=== PATIENT | female | born 1965 | race American Indian/Alaskan Native ===

== ENCOUNTER 2016-06-30 16:42 | Emergency (ER) | payer MEDICARE ==
[2016-06-30] MEDS ORDERED: TORADOL IM ONE (19:44)
--- NOTE | 2016-06-30 19:56 | Emergency Department Report ---
HPI - General Chief Complaint: Extremity Injury, Upper Time Seen by Provider: 06/30/16 19:27 - HPI HPI: 50-year-old female presents to the ED complaining of right middle fingertip pain and swelling for the past 2 weeks. Patient states fingertip has gotten progressively bigger and very painful.. Patient's she tends to bite her fingernails often. Patient states fingertip is discolored with some white areas. Patient denies fevers/chills/nausea/vomiting/abdominal pain/chest pain shortness of breath and dizziness, loss of finger function, loss of sensation. ED Past Medical Hx - Past Medical History Hx Hypertension: Yes Hx CVA: Yes Hx Diabetes: Yes Hx Arthritis: Yes - Surgical History Additional Surgical History: LEFT ANKLE. HERNIA REPAIR (UMBILICAL) - Social History Smoking Status: Former Smoker Substance Use Type: None - Medications Home Medications: Home Medications Medication Instructions Recorded Confirmed Last Taken Type Ibuprofen [Motrin] 800 mg PO Q8H PRN #21 tablet 08/16/14 12/09/15 Unknown Rx Black Cohosh 540 mg PO DAILY 12/09/15 12/09/15 Unknown History Cyclobenzaprine HCl [Flexeril 5 MG 5 mg PO TID #30 tab 12/09/15 Unknown Rx TAB] Ergocalciferol (Vitamin D2) 400 unit PO DAILY 12/09/15 12/09/15 Unknown History [Vitamin D] Lisinopril [Zestril] 20 mg PO QDAY 12/09/15 12/09/15 Unknown History Meloxicam [Mobic] 15 mg PO DAILY #30 tablet 12/09/15 Unknown Rx Metformin HCl [Glucophage] 1,000 mg PO BID 12/09/15 12/09/15 Unknown History [place]-3 Fatty Acids/Fish Oil [Fish 1,000 mg PO DAILY 12/09/15 12/09/15 Unknown History Oil] Terbinafine (Nf) [LamiSIL] 250 mg PO QDAY 12/09/15 12/09/15 Unknown History amLODIPine [Norvasc] 10 mg PO DAILY 12/09/15 12/09/15 Unknown History Acetaminophen/Codeine [Tylenol #3] 1 tab PO Q6H PRN #14 tab 06/30/16 Unknown Rx Amoxicillin/K Clav Tab [Augmentin 1 tab PO Q12HR #14 tab 06/30/16 Unknown Rx 875 mg] ED Review of Systems ROS: Stated complaint: R HAND MIDDLE FINGER INFECTED Other details as noted in HPI Constitutional: denies: chills, fever Eyes: denies: eye pain, eye discharge, vision change ENT: denies: ear pain, throat pain, dental pain, hearing loss, congestion Respiratory: denies: cough, shortness of breath, SOB with exertion, wheezing Cardiovascular: denies: chest pain, palpitations Endocrine: no symptoms reported. denies: excessive sweating, flushing, intolerance to cold Gastrointestinal: denies: abdominal pain, nausea, vomiting, diarrhea, constipation Genitourinary: denies: urgency, dysuria, discharge Musculoskeletal: denies: back pain, joint swelling, arthralgia Skin: denies: rash, lesions, pruritus Neurological: denies: headache, weakness, numbness, paresthesias, confusion Psychiatric: denies: anxiety, depression Hematological/Lymphatic: denies: easy bleeding, easy bruising Physical Exam - Physical Exam Vital Signs: Vital Signs 06/30/16 17:07 Temperature 98.0 F Pulse Rate 73 Respiratory 18 Rate Blood Pressure 155/97 O2 Sat by Pulse 100 Oximetry Physical Exam: GENERAL: Alert and oriented x3, no apparent distress, Normal Gait, atraumatic. HEAD: Head is normocephalic and a-traumatic. EYES: Extra ocular muscles are intact. Pupils are equal, round, and reactive to light and accommodation. EARS: symetrical, atraumatic, gross auditory nml bilaterally. NOSE: Nose symetrical, Nontender,Nares appeared normal. MOUTH:Mouth is well hydrated and without lesions. Patent airways. NECK: Supple. Non edematous, No carotid bruits. No lymphadenopathy or thyromegaly. LUNGS: Symetrical with respiration, No wheezing, no rales or crackles, CTAB. HEART: S1, S2 present, regular rate and rhythm without murmur, no rubs, no gallops. ABDOMEN: No organomegaly was noted,Positive bowel sounds, soft, and non- distended. . Nontender to palpation on all Quadrants, NO CVA tenderness. EXTREMITIES/MUSCULOSKELETAL: No cyanosis, clubbing, rash, lesions or edema. Full ROM bilaterally. UE/LE Pulses 2+ bilaterally. Right middle fingertip blanched, and a mattress, nonerythematous, no dislocation or fractures observed. No loss of finger function finger has full range of motion with some pain flex and the tip of the middle finger. NEUROLOGIC: No focal Deficit, Cranial nerves II through XII are grossly intact. No loss of sensation, PSYCHIATRIC: Mood is congruent with affect, denies suicidal or homicidal ideations. SKIN: Warm and dry, No lesions, No ulceration or induration present. ED Course Vital Signs 06/30/16 17:07 Temperature 98.0 F Pulse Rate 73 Respiratory 18 Rate Blood Pressure 155/97 O2 Sat by Pulse 100 Oximetry - I & D Right Distal Finger Type of Procedure: Simple Site: middle finger tip Blade Size: 11 I & D Procedure: betadine prep, sterile drapes applied, sterile dressing applied Progress: Patient positioned appropriately, 2cc lidocaine without epinephrine was used as a local anesthetic. #11 blade scalpal used for single incision. Copius drainage of pus. Procedure tolerated without complications. Wound dressed with sterile 4x4 guaze and paper tape. Pt tolerated procedure well. ED Medical Decision Making - Medical Decision Making 50-year-old female presents with paronychia of the middle finger nail. ED course: Patient received 60 mg IM of Toradol. Paronychia abscess drained. See note above. Discussed the patient follow-up with her primary care physician. Discussed continuing heat compression on fingertip. Vital signs are stable. Patient is in no acute or respiratory distress. Discussed to take pain medication and antibiotics as prescribed Critical care attestation.: If time is entered above; I have spent that time in minutes in the direct care of this critically ill patient, excluding procedure time. ED Disposition Clinical Impression: Paronychia of right middle finger Disposition: DISCHARGED TO HOME OR SELFCARE Is pt being admited?: No Does the pt Need Aspirin: No Condition: Stable Instructions: Paronychia (ED), Heat Pack Application (ED) Prescriptions: Acetaminophen/Codeine [Tylenol #3] 1 tab PO Q6H PRN #14 tab PRN Reason: Pain Amoxicillin/K Clav Tab [Augmentin 875 mg] 1 tab PO Q12HR #14 tab Referrals: PRIMARY CARE, [Primary Care Provider] - 3-5 Days [facility] [Outside] - 3-[address] [facility] [Outside] - 3-5 Days [facility] [Outside] - 3-5 Days Forms: Work/School Release Form(ED) Time of Disposition: 20:06
[2016-06-30] MEDS ORDERED: XYLOCAINE 1% MPF 5 mL INFILTRATI ONE (20:08)
[2016-06-30 20:51] VITALS: BP 148/92
== END 2016-06-30 20:50 | disposition home or self-care (01) ==
LOC: ED 16:42
DX: L03.011 Cellulitis of right finger (principal); I10 Essential (primary) hypertension; I63.9 Cerebral infarction, unspecified; E11.9 Type 2 diabetes mellitus without complications; M19.90 Unspecified osteoarthritis, unspecified site; Z87.891 Personal history of nicotine dependence
CPT/HCPCS: 10060; 96372; 99282; J1885

== ENCOUNTER 2016-12-18 16:55 | Emergency (ER) | payer MEDICARE ==
[2016-12-18] MEDS ORDERED: TORADOL IM ONE (20:21)
[2016-12-18 20:46] VITALS: BP 168/97
--- NOTE | 2016-12-20 16:15 | Emergency Department Report ---
Entered by ETHAN SEPULVEDA, acting as scribe for SHARRI ALFARO PA. ED Extremity Problem HPI - General Chief complaint: Extremity Injury, Lower Stated complaint: HIP PAIN/LEFT SIDE Time Seen by Provider: 12/18/16 20:03 Source: patient Mode of arrival: Ambulatory Limitations: No Limitations - History of Present Illness Initial comments: 51 y/o female with a PMHx of arthritis, CVA, diabetes mellitus, and HTN presents to the ED c/o an acute onset of left hip pain that began 1 days ago. Rates pain an 8/10 in severity, which she describes as aching in quality. Aggravated with movement and pressure, and alleviated with immobilization. Denies left hip injury/trauma, numbness, tingling, fever, chills, nausea, and vomiting. Notes she sleeps on her left side occasionally. NKDA. GARCIA Complaint: extremity pain Onset/Timin -: days(s) Location: left, other (hip) History of Same: No -: No myalgia, Yes arthralgia (left hip), No fever, No associated dyspnea, No associated chest pain Radiation: none Severity scale (0 -10): 8 Quality: aching Consistency: constant Improves with: immobilization Worsens with: palpation, other (movement) Associated Symptoms: denies other symptoms, myalgias (LT hip pain). denies: chest pain, shortness of breath, fever, arthralgias, rash, other - Related Data Home Medications Medication Instructions Recorded Confirmed Last Taken Black Cohosh 540 mg PO DAILY 12/09/15 12/09/15 Unknown Ergocalciferol(Vitamin D2)(Nf) 400 unit PO DAILY 12/09/15 12/09/15 Unknown [Vitamin D] Lisinopril [Zestril] 20 mg PO QDAY 12/09/15 12/09/15 Unknown Metformin HCl [Glucophage] 1,000 mg PO BID 12/09/15 12/09/15 Unknown [place]-3 Fatty Acids/Fish Oil [Fish 1,000 mg PO DAILY 12/09/15 12/09/15 Unknown Oil] Terbinafine (Nf) [LamiSIL] 250 mg PO QDAY 12/09/15 12/09/15 Unknown amLODIPine [Norvasc] 10 mg PO DAILY 12/09/15 12/09/15 Unknown Previous Rx's Medication Instructions Recorded Last Taken Type Ibuprofen [Motrin] 800 mg PO Q8H PRN #21 tablet 08/16/14 Unknown Rx Meloxicam [Mobic] 15 mg PO DAILY #30 tablet 12/09/15 Unknown Rx Acetaminophen/Codeine [Tylenol #3] 1 tab PO Q6H PRN #14 tab 06/30/16 Unknown Rx Amoxicillin/K Clav Tab [Augmentin 1 tab PO Q12HR #14 tab 06/30/16 Unknown Rx 875 mg] Cyclobenzaprine HCl [Flexeril 5 MG 5 mg PO TID #30 tab 12/18/16 Unknown Rx TAB] Diclofenac Potassium 50 mg PO BID #30 tablet 12/18/16 Unknown Rx Allergies Allergy/AdvReac Type Severity Reaction Status Date / Time No Known Allergies Allergy Verified 06/30/16 17:07 ED Review of Systems Comment: All other systems reviewed and negative Constitutional: denies: chills, diaphoresis, fever, malaise, weakness Eyes: denies: eye pain, eye discharge, vision change ENT: denies: ear pain, throat pain Respiratory: denies: cough, orthopnea, shortness of breath, SOB with exertion, SOB at rest, stridor, wheezing Cardiovascular: denies: chest pain, palpitations, dyspnea on exertion, orthopnea , edema, syncope, paroxysmal nocturnal dyspnea Endocrine: no symptoms reported Gastrointestinal: denies: abdominal pain, nausea, vomiting, diarrhea Musculoskeletal: arthralgia (LT hip pain). denies: back pain, joint swelling, myalgia Skin: denies: rash, lesions Neurological: denies: headache, weakness, numbness, paresthesias ED Past Medical Hx - Past Medical History Previous Medical History?: Yes Hx Hypertension: Yes Hx CVA: Yes (left sided weakness) Hx Diabetes: Yes Hx Arthritis: Yes - Surgical History Past Surgical History?: No Additional Surgical History: LEFT ANKLE. HERNIA REPAIR (UMBILICAL) - Social History Smoking Status: Former Smoker Substance Use Type: Alcohol, Marijuana - Medications Home Medications: Home Medications Medication Instructions Recorded Confirmed Last Taken Type Ibuprofen [Motrin] 800 mg PO Q8H PRN #21 tablet 08/16/14 12/09/15 Unknown Rx Black Cohosh 540 mg PO DAILY 12/09/15 12/09/15 Unknown History Ergocalciferol(Vitamin D2)(Nf) 400 unit PO DAILY 12/09/15 12/09/15 Unknown History [Vitamin D] Lisinopril [Zestril] 20 mg PO QDAY 12/09/15 12/09/15 Unknown History Meloxicam [Mobic] 15 mg PO DAILY #30 tablet 12/09/15 Unknown Rx Metformin HCl [Glucophage] 1,000 mg PO BID 12/09/15 12/09/15 Unknown History [place]-3 Fatty Acids/Fish Oil [Fish 1,000 mg PO DAILY 12/09/15 12/09/15 Unknown History Oil] Terbinafine (Nf) [LamiSIL] 250 mg PO QDAY 12/09/15 12/09/15 Unknown History amLODIPine [Norvasc] 10 mg PO DAILY 12/09/15 12/09/15 Unknown History Acetaminophen/Codeine [Tylenol #3] 1 tab PO Q6H PRN #14 tab 06/30/16 Unknown Rx Amoxicillin/K Clav Tab [Augmentin 1 tab PO Q12HR #14 tab 06/30/16 Unknown Rx 875 mg] Cyclobenzaprine HCl [Flexeril 5 MG 5 mg PO TID #30 tab 12/18/16 Unknown Rx TAB] Diclofenac Potassium 50 mg PO BID #30 tablet 12/18/16 Unknown Rx ED Physical Exam - General Limitations: No Limitations General appearance: alert, in no apparent distress - Head Head exam: Present: atraumatic, normocephalic - Eye Eye exam: Present: normal appearance, PERRL, EOMI Pupils: Present: normal accommodation - ENT ENT exam: Present: normal exam, mucous membranes moist, normal external ear exam - Neck Neck exam: Present: normal inspection, full ROM. Absent: tenderness, meningismus, lymphadenopathy - Respiratory Respiratory exam: Present: normal lung sounds bilaterally. Absent: respiratory distress, wheezes, rales, rhonchi, stridor, accessory muscle use, decreased breath sounds - Cardiovascular Cardiovascular Exam: Present: regular rate, normal rhythm, normal heart sounds. Absent: systolic murmur, diastolic murmur, rubs, gallop - GI/Abdominal GI/Abdominal exam: Present: soft, normal bowel sounds. Absent: distended - Extremities Exam Extremities exam: Present: full ROM, tenderness (LT hip with deep palpation), normal capillary refill. Absent: normal inspection, pedal edema, joint swelling , calf tenderness - Expanded Lower Extremity Exam Left Hip exam: Present: full ROM, tenderness (with deep palpation), external rotation , internal rotation, pelvic stability. Absent: normal inspection, swelling, abrasion, laceration, ecchymosis, deformity, crepidus, dislocation, erythema, shortening Upper Leg exam: Present: normal inspection, full ROM. Absent: tenderness, swelling, abrasion, laceration, ecchymosis, deformity, crepidus, dislocation, erythema Knee exam: Present: normal inspection, full ROM, full knee extension. Absent: tenderness, swelling, abrasion, laceration, ecchymosis, deformity, crepidus, dislocation, erythema, effusion, pain w/ pronation/supination, posterior draw sign, pain/laxity with valgus, pain/laxity with varus Lower Leg exam: Present: normal inspection, full ROM. Absent: tenderness, swelling, abrasion, laceration, ecchymosis, deformity, crepidus, dislocation, erythema, palpable cord, Mayo's sign Ankle exam: Present: normal inspection, full ROM Foot/Toe exam: Present: normal inspection, full ROM Neuro vascular tendon exam: Present: no vascular compromise. Absent: pulse deficit, abnormal cap refill, motor deficit, sensory deficit, tendon deficit, extremity cold to touch, pallor, abnormal 2-point discrimination, decreased fine /light touch, foot drop, peroneal nerve deficit, significant pain with passive ROM of distal joint Gait: Positive: observed and limited by pain - Back Exam Back exam: Present: normal inspection, full ROM. Absent: tenderness - Neurological Exam Neurological exam: Present: alert, oriented X3, normal gait (limited by left hip pain) - Psychiatric Psychiatric exam: Present: normal affect, normal mood - Skin Skin exam: Present: warm, dry, intact. Absent: rash ED Course Vital Signs 12/18/16 12/18/16 12/18/16 17:06 20:35 20:46 Temperature 98.8 F 98 F Pulse Rate 86 79 Respiratory 18 16 16 Rate Blood Pressure 152/91 Blood Pressure 168/97 [Right] O2 Sat by Pulse 100 100 Oximetry ED Medical Decision Making - Medical Decision Making 51 year old female presents with an acute episode of arthralgia in left hip ED course: Patient was given a shot of Toradol Vital signs stable patient is in no acute or respiratory distress. Discussed findings with patient about diagnoses. Discussed treatment in ED with patient. Discussed with patient about prescribes medications, Flexeril 5 mg and Diclofenac Potassium 50 mg, for pain Discussed with patient to follow up with PCP as referred, and to return to the ED if symptoms return or worsen. Patient states understanding and will follow instructions. Pt verbally states understanding and will comply to follow up. ED Disposition Clinical Impression: Myalgia, Arthralgia of hip, left Disposition: - TO HOME OR SELFCARE Is pt being admited?: No Does the pt Need Aspirin: No Condition: Stable Instructions: Trigger Point Pain (ED), Musculoskeletal Pain (ED), Arthralgia ( ED) Additional Instructions: If worsening symptoms please return to ED Taking medication as prescribed Prescriptions: Cyclobenzaprine HCl [Flexeril 5 MG TAB] 5 mg PO TID #30 tab Diclofenac Potassium 50 mg PO BID #30 tablet Referrals: PRIMARY CARE,MD [Primary Care Provider] - 3-5 Days [facility] [Outside] - 3-5 Days [facility] [Outside] - 3-5 Days [facility] [Outside] - 3-5 Days Forms: Work/School Release Form(ED) Time of Disposition: 20:30 This documentation as recorded by the DERICK vieyra JASMINE,accurately reflects the service I personally performed and the decisions made by ,SHARRI ALFARO PA.
== END 2016-12-18 20:35 | disposition home or self-care (01) ==
LOC: ED 16:55
DX: M25.552 Pain in left hip (principal); M79.1 Myalgia; E11.9 Type 2 diabetes mellitus without complications; I10 Essential (primary) hypertension; M19.90 Unspecified osteoarthritis, unspecified site; F12.90 Cannabis use, unspecified, uncomplicated; Z86.73 Personal history of transient ischemic attack (TIA), and cerebral infarction without residual deficits; Z87.891 Personal history of nicotine dependence
CPT/HCPCS: 96372; 99282; J1885

== ENCOUNTER 2017-03-23 09:25 | Emergency (ER) | payer MEDICARE ==
[2017-03-23 09:34] VITALS: BP 177/97
--- NOTE | 2017-03-23 11:38 | Emergency Department Report ---
ED ENT HPI - General Chief complaint: Dental/Oral Stated complaint: ABSCESS ON GUM Time Seen by Provider: 03/23/17 10:49 Source: patient Mode of arrival: Ambulatory Limitations: No Limitations - History of Present Illness MD complaint: tooth pain - Related Data Home Medications Medication Instructions Recorded Confirmed Last Taken Black Cohosh 540 mg PO DAILY 12/09/15 12/09/15 Unknown Ergocalciferol(Vitamin D2)(Nf) 400 unit PO DAILY 12/09/15 12/09/15 Unknown [Vitamin D] Lisinopril [Zestril] 20 mg PO QDAY 12/09/15 12/09/15 Unknown Metformin HCl [Glucophage] 1,000 mg PO BID 12/09/15 12/09/15 Unknown [place]-3 Fatty Acids/Fish Oil [Fish 1,000 mg PO DAILY 12/09/15 12/09/15 Unknown Oil] Terbinafine (Nf) [LamiSIL] 250 mg PO QDAY 12/09/15 12/09/15 Unknown amLODIPine [Norvasc] 10 mg PO DAILY 12/09/15 12/09/15 Unknown Previous Rx's Medication Instructions Recorded Last Taken Type Ibuprofen [Motrin] 800 mg PO Q8H PRN #21 tablet 08/16/14 Unknown Rx Meloxicam [Mobic] 15 mg PO DAILY #30 tablet 12/09/15 Unknown Rx Acetaminophen/Codeine [Tylenol #3] 1 tab PO Q6H PRN #14 tab 06/30/16 Unknown Rx Amoxicillin/K Clav Tab [Augmentin 1 tab PO Q12HR #14 tab 06/30/16 Unknown Rx 875 mg] Cyclobenzaprine HCl [Flexeril 5 MG 5 mg PO TID #30 tab 12/18/16 Unknown Rx TAB] Diclofenac Potassium 50 mg PO BID #30 tablet 12/18/16 Unknown Rx Acetaminophen/Codeine [Tylenol 1 tab PO Q6H PRN #9 tab 03/23/17 Unknown Rx /Codeine # 3 tab] Amoxicillin [Trimox CAP] 500 mg PO Q8H #30 capsule 03/23/17 Unknown Rx Benzocaine [Orajel Liquid 20%] 1 ml MM Q6HR PRN #1 bottle 03/23/17 Unknown Rx Chlorhexidine Mouthwash [Peridex] 15 ml MM BID #1 bottle 03/23/17 Unknown Rx Ibuprofen [Motrin] 800 mg PO Q8HR PRN #30 tablet 03/23/17 Unknown Rx Allergies Allergy/AdvReac Type Severity Reaction Status Date / Time No Known Allergies Allergy Verified 06/30/16 17:07 ED Dental HPI - General Chief complaint: Dental/Oral Stated complaint: ABSCESS ON GUM Time Seen by Provider: 03/23/17 10:49 Source: patient Mode of arrival: Ambulatory Limitations: No Limitations - Related Data Home Medications Medication Instructions Recorded Confirmed Last Taken Black Cohosh 540 mg PO DAILY 12/09/15 12/09/15 Unknown Ergocalciferol(Vitamin D2)(Nf) 400 unit PO DAILY 12/09/15 12/09/15 Unknown [Vitamin D] Lisinopril [Zestril] 20 mg PO QDAY 12/09/15 12/09/15 Unknown Metformin HCl [Glucophage] 1,000 mg PO BID 12/09/15 12/09/15 Unknown [place]-3 Fatty Acids/Fish Oil [Fish 1,000 mg PO DAILY 12/09/15 12/09/15 Unknown Oil] Terbinafine (Nf) [LamiSIL] 250 mg PO QDAY 12/09/15 12/09/15 Unknown amLODIPine [Norvasc] 10 mg PO DAILY 12/09/15 12/09/15 Unknown Previous Rx's Medication Instructions Recorded Last Taken Type Ibuprofen [Motrin] 800 mg PO Q8H PRN #21 tablet 08/16/14 Unknown Rx Meloxicam [Mobic] 15 mg PO DAILY #30 tablet 12/09/15 Unknown Rx Acetaminophen/Codeine [Tylenol #3] 1 tab PO Q6H PRN #14 tab 06/30/16 Unknown Rx Amoxicillin/K Clav Tab [Augmentin 1 tab PO Q12HR #14 tab 06/30/16 Unknown Rx 875 mg] Cyclobenzaprine HCl [Flexeril 5 MG 5 mg PO TID #30 tab 12/18/16 Unknown Rx TAB] Diclofenac Potassium 50 mg PO BID #30 tablet 12/18/16 Unknown Rx Acetaminophen/Codeine [Tylenol 1 tab PO Q6H PRN #9 tab 03/23/17 Unknown Rx /Codeine # 3 tab] Amoxicillin [Trimox CAP] 500 mg PO Q8H #30 capsule 03/23/17 Unknown Rx Benzocaine [Orajel Liquid 20%] 1 ml MM Q6HR PRN #1 bottle 03/23/17 Unknown Rx Chlorhexidine Mouthwash [Peridex] 15 ml MM BID #1 bottle 03/23/17 Unknown Rx Ibuprofen [Motrin] 800 mg PO Q8HR PRN #30 tablet 03/23/17 Unknown Rx Allergies Allergy/AdvReac Type Severity Reaction Status Date / Time No Known Allergies Allergy Verified 06/30/16 17:07 ED Review of Systems ROS: Stated complaint: ABSCESS ON GUM Other details as noted in HPI ED Past Medical Hx - Past Medical History Previous Medical History?: Yes Hx Hypertension: Yes Hx CVA: Yes (left sided weakness) Hx Diabetes: Yes Hx Arthritis: Yes - Surgical History Past Surgical History?: Yes Additional Surgical History: LEFT ANKLE. HERNIA REPAIR (UMBILICAL) - Social History Smoking Status: Never Smoker Substance Use Type: Alcohol - Medications Home Medications: Home Medications Medication Instructions Recorded Confirmed Last Taken Type Ibuprofen [Motrin] 800 mg PO Q8H PRN #21 tablet 08/16/14 12/09/15 Unknown Rx Black Cohosh 540 mg PO DAILY 12/09/15 12/09/15 Unknown History Ergocalciferol(Vitamin D2)(Nf) 400 unit PO DAILY 12/09/15 12/09/15 Unknown History [Vitamin D] Lisinopril [Zestril] 20 mg PO QDAY 12/09/15 12/09/15 Unknown History Meloxicam [Mobic] 15 mg PO DAILY #30 tablet 12/09/15 Unknown Rx Metformin HCl [Glucophage] 1,000 mg PO BID 12/09/15 12/09/15 Unknown History [place]-3 Fatty Acids/Fish Oil [Fish 1,000 mg PO DAILY 12/09/15 12/09/15 Unknown History Oil] Terbinafine (Nf) [LamiSIL] 250 mg PO QDAY 12/09/15 12/09/15 Unknown History amLODIPine [Norvasc] 10 mg PO DAILY 12/09/15 12/09/15 Unknown History Acetaminophen/Codeine [Tylenol #3] 1 tab PO Q6H PRN #14 tab 06/30/16 Unknown Rx Amoxicillin/K Clav Tab [Augmentin 1 tab PO Q12HR #14 tab 06/30/16 Unknown Rx 875 mg] Cyclobenzaprine HCl [Flexeril 5 MG 5 mg PO TID #30 tab 12/18/16 Unknown Rx TAB] Diclofenac Potassium 50 mg PO BID #30 tablet 12/18/16 Unknown Rx Acetaminophen/Codeine [Tylenol 1 tab PO Q6H PRN #9 tab 03/23/17 Unknown Rx /Codeine # 3 tab] Amoxicillin [Trimox CAP] 500 mg PO Q8H #30 capsule 03/23/17 Unknown Rx Benzocaine [Orajel Liquid 20%] 1 ml MM Q6HR PRN #1 bottle 03/23/17 Unknown Rx Chlorhexidine Mouthwash [Peridex] 15 ml MM BID #1 bottle 03/23/17 Unknown Rx Ibuprofen [Motrin] 800 mg PO Q8HR PRN #30 tablet 03/23/17 Unknown Rx ED Physical Exam - General Limitations: No Limitations ED Course Vital Signs 03/23/17 09:32 Temperature 98.9 F Pulse Rate 82 Respiratory 16 Rate Blood Pressure 177/97 O2 Sat by Pulse 98 Oximetry ED Medical Decision Making - Medical Decision Making A/P: dental cavities, toothache, dental abscess 1- Motrin when necessary, amoxicillin ten-day course, Orajel when necessary, Peridex mouthwash daily basis, short course codeine when necessary 2- I provided patient with information for multiple dental clinics to follow up and stressed the importance of dental follow-up as he has multiple cavities that require dental fixation or instrumentation 3- no clinical signs of facial abscess, no Zacarias's angina, no induration or cellulitis of floor of mouth or tongue 4- patient able to tolerate by mouth before discharge 5- no signs of facial infection. Advised patient that if she does not take antibiotics with follow-up with a dentist as soon as possible that a can result in potentially serious or dangerous infection to develop in jaw or face. Patient states that he understood these instructions. I advised patient to return to the ED for any persistent unrelenting nausea or vomiting fever or chills or headaches. Critical care attestation.: If time is entered above; I have spent that time in minutes in the direct care of this critically ill patient, excluding procedure time. ED Disposition Clinical Impression: Pain, dental, Dental abscess Disposition: TO HOME OR SELFCARE Is pt being admited?: No Does the pt Need Aspirin: No Condition: Stable Instructions: Dental Abscess (ED), Toothache (ED) Prescriptions: Acetaminophen/Codeine [Tylenol /Codeine # 3 tab] 1 tab PO Q6H PRN #9 tab PRN Reason: Pain Amoxicillin [Trimox CAP] 500 mg PO Q8H #30 capsule Benzocaine [Orajel Liquid 20%] 1 ml MM Q6HR PRN #1 bottle PRN Reason: Toothache Chlorhexidine Mouthwash [Peridex] 15 ml MM BID #1 bottle Ibuprofen [Motrin] 800 mg PO Q8HR PRN #30 tablet PRN Reason: Toothache Referrals: [facility] [Outside] - 3-5 Days Time of Disposition: 11:34
== END 2017-03-23 11:57 | disposition home or self-care (01) ==
LOC: ED 09:25
DX: K04.7 Periapical abscess without sinus (principal); I10 Essential (primary) hypertension; Z86.73 Personal history of transient ischemic attack (TIA), and cerebral infarction without residual deficits; E11.9 Type 2 diabetes mellitus without complications; M19.90 Unspecified osteoarthritis, unspecified site
CPT/HCPCS: 99282

== ENCOUNTER 2018-07-26 21:48 | Emergency (ER) | payer MEDICARE ==
--- NOTE | 2018-07-26 22:40 | Emergency Department Report ---
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 Due to findings the following was ordered: ED Disposition for MSE Condition: Stable
[2018-07-26 22:59] LABS: Hematocrit 41.5 % (30.3-42.9); Hemoglobin 14.8 gm/dl (10.1-14.3); Mean Corpuscular HGB Conc 36 % (30-34); Mean Corpuscular Volume 94 fl (79-97); Platelet Count 249 K/mm3 (140-440); Red Blood Count 4.41 M/mm3 (3.65-5.03); Red Cell Distribution Width 13.4 % (13.2-15.2)
[2018-07-26 23:14] LABS: Calcium 10.4 mg/dL (8.4-10.2)
[2018-07-27] MEDS ORDERED: NACL 0.9% 1000 ML 1,000 ML IV ONE ×2 (00:44→03:24)
[2018-07-27] MEDS ORDERED: TORADOL IV ONE ×2 (00:45→03:40)
[2018-07-27] MEDS ORDERED: ZOFRAN IV ONE ×2 (00:45→03:40)
[2018-07-27 03:10] LABS: HCG Qualitative,Urine Negative (Negative)
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
[2018-07-27 04:13] LABS: Bacteria,Urine 1+ /HPF (Negative); Bilirubin,Urine NEG (Negative); Blood,Urine NEG (Negative); Color,Urine Yellow (Yellow)
[2018-07-27 07:37] VITALS: BP 144/72
--- NOTE | 2018-07-27 20:51 | Cat Scan Report ---
PROCEDURE: CT ABDOMEN PELVIS WO CON TECHNIQUE: Computerized axial tomography of the abdomen and pelvis was performed without intravenous contrast. This study is performed without intravascular contrast material and its sensitivity for ab dominal and pelvic pathology, including neoplasms, inflammation, abscess, free fluid, thrombosis, art erial dissection and infarction, is reduced compared with a contrast enhanced study. CT DOSE LENGTH PRODUCT: mGycm HISTORY: abd pain COMPARISONS: None . FINDINGS: Liver, spleen, pancreas and adrenal glands are within normal limits. Bilateral kidneys demonstrate no rmal density without calculi or hydronephrosis. Urinary bladder is partially filled. Aorta is of norm al caliber. There is no free fluid or free air. Gallbladder is well-distended and is unremarkable. Sm all bowel loops are within normal limits. Multiple colonic diverticula are noted without evidence of diverticulitis. Appendix is normal. A fat-containing uncomplicated left inguinal hernia is noted korina uring 4.5 x 4.8 cm. Vertebral height is normal. Moderate degree marginal osteophyte formation is note d involving the thoracic spine. An irregular soft tissue density lesion measuring 4.5 x 1.6 x 3.5 cm is noted anterior to the linea alba at the level of umbilicus. IMPRESSION: Colonic diverticulosis without evidence of diverticulitis. A 4.5 x 4.8 cm fat-containing uncomplicated left inguinal hernia. An irregular soft tissue density lesion involving the anterior abdominal wall at the level of umbilic us most likely represents a scar. Ultrasound evaluation may be recommended if clinically deemed neces ayala. This document is electronically signed by Min Brock MD., July 27 2018 08:49:27 PM ET
== END 2018-07-27 06:00 | disposition home or self-care (01) ==
LOC: ED 21:48
DX: N30.00 Acute cystitis without hematuria (principal); I10 Essential (primary) hypertension; E11.9 Type 2 diabetes mellitus without complications; M19.90 Unspecified osteoarthritis, unspecified site; F12.10 Cannabis abuse, uncomplicated; Z86.73 Personal history of transient ischemic attack (TIA), and cerebral infarction without residual deficits; Z79.899 Other long term (current) drug therapy; Z88.6 Allergy status to analgesic agent
CPT/HCPCS: 36415; 74176; 80048; 81001; 81025; 85027; 96374; 96375; 96376; 99284; J1885; J2405; J7030

== ENCOUNTER 2021-02-01 18:45 | Emergency (ER) | payer MEDICARE ==
[2021-02-01] MEDS ORDERED: predniSONE 20 MG TAB PO ONE ×2 (20:37→23:40)
[2021-02-01] MEDS ORDERED: oxyCODONE /ACETAMINOPHEN 5-325MG TAB PO ONE ×2 (20:37→23:40)
[2021-02-01] MEDS ORDERED: ONDANSETRON 4 MG ODT TAB PO ONE ×2 (20:37→23:40)
[2021-02-01 21:13] LABS: Basophils # (Auto) 0.1 K/mm3 (0.0-0.1); Basophils % (Auto) 1.4 % (0.0-1.8); Eosinophils # (Auto) 0.1 K/mm3 (0.0-0.4); Eosinophils % (Auto) 1.5 % (0.0-4.3); Hematocrit 40.6 % (30.3-42.9); Hemoglobin 14.2 gm/dl (10.1-14.3); Lymphocytes # (Auto) 2.3 K/mm3 (1.2-5.4); Lymphocytes % (Auto) 29.9 % (13.4-35.0); Mean Corpuscular HGB Conc 35 % (30-34); Mean Corpuscular Volume 98 fl (79-97); Monocytes # (Auto) 0.6 K/mm3 (0.0-0.8); Monocytes % (Auto) 7.7 % (0.0-7.3); Platelet Count 338 K/mm3 (140-440); Red Blood Count 4.12 M/mm3 (3.65-5.03); Red Cell Distribution Width 13.7 % (13.2-15.2)
--- NOTE | 2021-02-01 21:24 | XRay Report ---
LEFT KNEE 3 VIEW(S) INDICATION / CLINICAL INFORMATION: knee pain COMPARISON: None available. FINDINGS: BONES / JOINT(S): No acute fracture or subluxation. There is mild joint space loss and osteophytosis involving the medial greater than patellofemoral greater than lateral compartments. There is a small joint effusion. SOFT TISSUES: No significant abnormality. ADDITIONAL FINDINGS: None. Signer Name: John Parnell DO Signed: 02/01/2021 9:20 PM Workstation Name: [id number]
[2021-02-01 21:37] LABS: Albumin 4.7 g/dL (3.9-5)
[2021-02-01 21:54] LABS: Alanine Aminotransferase 12 units/L (7-56); Blood Urea Nitrogen 21 mg/dL (7-17); Calcium 10.7 mg/dL (8.4-10.2); Hemolysis Index 35
[2021-02-01 22:00] LABS: BUN/Creatinine Ratio 30
[2021-02-01 22:06] VITALS: BP 157/80
--- NOTE | 2021-02-01 22:08 | Emergency Department Report ---
ED Extremity Problem HPI - General Chief complaint: Extremity Injury, Lower Stated complaint: LT KNEE OUT, CANT PUT WEIGHT ON IT Source: patient Mode of arrival: Ambulatory Limitations: Physical Limitation - History of Present Illness Initial comments: Patient is a 55-year-old -[place] female with a history of hypertension, CVA, fzl-lioindx-inxwxmmgq diabetes, GERD, and chronic osteoarthritis who presents to the ED with complaint of acute exacerbation of her chronic pain characterized by left knee pain for the last 1 week, worse in the last 2 days. Patient states that her pain is chronic and usually gets worse in the fall when the weather changes. Patient states that the pain is constant, but worse at rest or with any active range of motion. Patient states that the pain is especially worse when she tries to get up despite taking vhvj-ior-oyhllxr pain medications and applying knee brace. Patient denies fall, traumatic injury, nausea, vomiting, chest pain, shortness of breath, fever, chills, dizziness, syncope or change in vision. MD Complaint: extremity pain (left knee joint pain), extremity swelling (left knee joint pain), joint swelling (left knee), joint paint (left knee) -: hour(s) (2), year(s) (12) Location: left, lower extremity (left knee), knee History of Same: Yes (chronic osteoarthritis ) -: Yes arthralgia (left knee pain), No fever, No associated dyspnea Severity scale (0 -10): 10 Quality: aching, sharp, constant Consistency: constant Improves with: nothing Worsens with: weight bearing, walking, exertion, palpation Associated Symptoms: denies other symptoms, arthralgias. denies: chest pain, shortness of breath, fever, myalgias, rash - Related Data Home Medications Medication Instructions Recorded Confirmed Last Taken Black Cohosh 540 mg PO DAILY 12/09/15 12/09/15 Unknown Ergocalciferol(Vitamin D2)(Nf) 400 unit PO DAILY 12/09/15 12/09/15 Unknown [Vitamin D] Metformin HCl [Glucophage] 1,000 mg PO BID 12/09/15 12/09/15 Unknown [place]-3 Fatty Acids/Fish Oil [Fish 1,000 mg PO DAILY 12/09/15 12/09/15 Unknown Oil] Terbinafine (Nf) [LamiSIL] 250 mg PO QDAY 12/09/15 12/09/15 Unknown amLODIPine [Norvasc] 10 mg PO DAILY 12/09/15 12/09/15 Unknown lisinopriL [Zestril] 20 mg PO QDAY 12/09/15 12/09/15 Unknown Previous Rx's Medication Instructions Recorded Last Taken Type Ibuprofen [Motrin] 800 mg PO Q8H PRN #21 tablet 08/16/14 Unknown Rx Meloxicam [Mobic] 15 mg PO DAILY #30 tablet 12/09/15 Unknown Rx Acetaminophen/Codeine [Tylenol #3] 1 tab PO Q6H PRN #14 tab 06/30/16 Unknown Rx Amoxicillin/K Clav Tab [Augmentin 1 tab PO Q12HR #14 tab 06/30/16 Unknown Rx 875 mg] Cyclobenzaprine HCl [Flexeril 5 MG 5 mg PO TID #30 tab 12/18/16 Unknown Rx TAB] Diclofenac Potassium 50 mg PO BID #30 tablet 12/18/16 Unknown Rx Acetaminophen/Codeine [Tylenol 1 tab PO Q6H PRN #9 tab 03/23/17 Unknown Rx /Codeine # 3 tab] Amoxicillin [Trimox CAP] 500 mg PO Q8H #30 capsule 03/23/17 Unknown Rx Benzocaine [Orajel Liquid 20%] 1 ml MM Q6HR PRN #1 bottle 03/23/17 Unknown Rx Chlorhexidine Mouthwash [Peridex] 15 ml MM BID #1 bottle 03/23/17 Unknown Rx Ibuprofen [Motrin] 800 mg PO Q8HR PRN #30 tablet 03/23/17 Unknown Rx Nitrofurantoin Monohyd/M-Cryst 100 mg PO BID 7 Days #15 capsule 07/27/18 Unknown Rx [Macrobid 100 mg Capsule] Baclofen 20 mg PO Q12H PRN #30 tablet 02/01/21 Unknown Rx Naproxen Sodium [Naproxen Sodium 550 mg PO Q12H PRN #30 tablet 02/01/21 Unknown Rx 550mg] predniSONE [Deltasone] 40 mg PO QDAY #10 tab 02/01/21 Unknown Rx traMADoL [Ultram] 50 mg PO Q6HR PRN #12 tablet 02/01/21 Unknown Rx Allergies Allergy/AdvReac Type Severity Reaction Status Date / Time lisinopril Allergy Swelling Verified 02/01/21 19:49 ED Review of Systems ROS: Stated complaint: LT KNEE OUT, CANT PUT WEIGHT ON IT Other details as noted in HPI Constitutional: denies: chills, fever Eyes: denies: eye pain, eye discharge, vision change ENT: denies: ear pain, throat pain Respiratory: denies: cough, shortness of breath, wheezing Cardiovascular: denies: chest pain, palpitations Endocrine: no symptoms reported Gastrointestinal: denies: abdominal pain, nausea, diarrhea Genitourinary: denies: urgency, dysuria, discharge Musculoskeletal: arthralgia (left knee), myalgia. denies: back pain, joint swelling (mild left knee swelling) Skin: denies: rash, lesions Neurological: denies: headache, weakness, paresthesias Psychiatric: denies: anxiety, depression Hematological/Lymphatic: denies: easy bleeding, easy bruising ED Past Medical Hx - Past Medical History Hx Hypertension: Yes Hx CVA: Yes (left sided weakness) Hx Diabetes: Yes Hx Arthritis: Yes - Surgical History Additional Surgical History: LEFT ANKLE. HERNIA REPAIR (UMBILICAL). Dental - Social History Smoking Status: Current Some Day Smoker - Medications Home Medications: Home Medications Medication Instructions Recorded Confirmed Last Taken Type Ibuprofen [Motrin] 800 mg PO Q8H PRN #21 tablet 08/16/14 12/09/15 Unknown Rx Black Cohosh 540 mg PO DAILY 12/09/15 12/09/15 Unknown History Ergocalciferol(Vitamin D2)(Nf) 400 unit PO DAILY 12/09/15 12/09/15 Unknown History [Vitamin D] Meloxicam [Mobic] 15 mg PO DAILY #30 tablet 12/09/15 Unknown Rx Metformin HCl [Glucophage] 1,000 mg PO BID 12/09/15 12/09/15 Unknown History [place]-3 Fatty Acids/Fish Oil [Fish 1,000 mg PO DAILY 12/09/15 12/09/15 Unknown History Oil] Terbinafine (Nf) [LamiSIL] 250 mg PO QDAY 12/09/15 12/09/15 Unknown History amLODIPine [Norvasc] 10 mg PO DAILY 12/09/15 12/09/15 Unknown History lisinopriL [Zestril] 20 mg PO QDAY 12/09/15 12/09/15 Unknown History Acetaminophen/Codeine [Tylenol #3] 1 tab PO Q6H PRN #14 tab 06/30/16 Unknown Rx Amoxicillin/K Clav Tab [Augmentin 1 tab PO Q12HR #14 tab 06/30/16 Unknown Rx 875 mg] Cyclobenzaprine HCl [Flexeril 5 MG 5 mg PO TID #30 tab 12/18/16 Unknown Rx TAB] Diclofenac Potassium 50 mg PO BID #30 tablet 12/18/16 Unknown Rx Acetaminophen/Codeine [Tylenol 1 tab PO Q6H PRN #9 tab 03/23/17 Unknown Rx /Codeine # 3 tab] Amoxicillin [Trimox CAP] 500 mg PO Q8H #30 capsule 03/23/17 Unknown Rx Benzocaine [Orajel Liquid 20%] 1 ml MM Q6HR PRN #1 bottle 03/23/17 Unknown Rx Chlorhexidine Mouthwash [Peridex] 15 ml MM BID #1 bottle 03/23/17 Unknown Rx Ibuprofen [Motrin] 800 mg PO Q8HR PRN #30 tablet 03/23/17 Unknown Rx Nitrofurantoin Monohyd/M-Cryst 100 mg PO BID 7 Days #15 capsule 07/27/18 Unknown Rx [Macrobid 100 mg Capsule] Baclofen 20 mg PO Q12H PRN #30 tablet 02/01/21 Unknown Rx Naproxen Sodium [Naproxen Sodium 550 mg PO Q12H PRN #30 tablet 02/01/21 Unknown Rx 550mg] predniSONE [Deltasone] 40 mg PO QDAY #10 tab 02/01/21 Unknown Rx traMADoL [Ultram] 50 mg PO Q6HR PRN #12 tablet 02/01/21 Unknown Rx ED Physical Exam - General Limitations: Physical Limitation General appearance: alert, in no apparent distress - Head Head exam: Present: atraumatic, normocephalic, normal inspection - Eye Eye exam: Present: normal appearance, PERRL, EOMI Pupils: Present: normal accommodation - ENT ENT exam: Present: normal exam, normal orophraynx, mucous membranes moist, TM's normal bilaterally, normal external ear exam - Neck Neck exam: Present: normal inspection, full ROM - Respiratory Respiratory exam: Present: normal lung sounds bilaterally. Absent: respiratory distress, wheezes, rales, rhonchi, chest wall tenderness, accessory muscle use, decreased breath sounds, prolonged expiratory - Cardiovascular Cardiovascular Exam: Present: regular rate, normal rhythm, normal heart sounds. Absent: systolic murmur, diastolic murmur, rubs, gallop - GI/Abdominal GI/Abdominal exam: Present: soft, normal bowel sounds. Absent: tenderness, guarding, rebound, hyperactive bowel sounds, hypoactive bowel sounds, organomegaly - Extremities Exam Extremities exam: Present: normal inspection, tenderness (Palpable severe left knee tenderness with mild swelling and limited range of motion due to pain.), normal capillary refill, joint swelling (Mild left knee swelling). Absent: full ROM (Limited range of motion of left knee joint due to severe pain), pedal edema, calf tenderness - Back Exam Back exam: Present: normal inspection, full ROM. Absent: tenderness, CVA tenderness (L), muscle spasm, vertebral tenderness - Neurological Exam Neurological exam: Present: alert, oriented X3, CN II-XII intact, normal gait, reflexes normal - Psychiatric Psychiatric exam: Present: normal affect, normal mood - Skin Skin exam: Present: warm, dry, intact, normal color. Absent: rash ED Medical Decision Making - Lab Data Result diagrams: 02/01/21 21:04 02/01/21 21:04 - Radiology Data Radiology results: report reviewed, image reviewed [facility] [address] [place] [address] XRay Report Signed Patient: HENRY MILLER MR#: [id number] 110 : 1965 Acct:[id number] Age/Sex: 55 / F ADM Date: 02/01/21 Loc: ED Attending Dr: Ordering Physician: JODI WHITE Date of Service: 02/01/21 Procedure(s): XR knee 3V LT Accession Number(s): [id number] cc: JODI WHITE Fluoro Time In Minutes: LEFT KNEE 3 VIEW(S) INDICATION / CLINICAL INFORMATION: knee pain COMPARISON: None available. FINDINGS: BONES / JOINT(S): No acute fracture or subluxation. There is mild joint space loss and osteophytosis involving the medial greater than patellofemoral greater than lateral compartments. There is a small joint effusion. SOFT TISSUES: No significant abnormality. ADDITIONAL FINDINGS: None. Signer Name: John Parnell DO Signed: 02/01/2021 9:20 PM Workstation Name: [id number] Transcribed By: KRISTINA Dictated By: JOHN PARNELL DO Electronically Authenticated By: JOHN PARNELL DO Signed Date/Time: 02/01/212119 DD/ 18 TD/TT: Print - Medical Decision Making This is a 55-year-old -[place] female with a history of hypertension, CVA, uoh-nrpndku-dozkyaetg diabetes, GERD, and chronic osteoarthritis who pr esents to the ED with complaint of acute exacerbation of her chronic pain characterized by left knee pain for the last 1 week, worse in the last 2 days. Patient states that her pain is chronic and usually gets worse in the fall when the weather changes. Patient states that the pain is constant, but worse at rest or with any active range of motion. Patient states that the pain is especially worse when she tries to get up despite taking hncj-yvs-ddvfqtk pain medications and applying knee brace. In the ED, patient is alert and oriented x3 and is not in distress but appears to be in pain. Patient was treated for pain in the ED, and left knee x-ray showed no acute fracture or subluxation. Th ere is mild joint space loss and osteophytosis involving the medial greater than patellofemoral greater than lateral compartments. There is a small joint effusion. Patient already has an a left knee brace in place. Patient was therefore discharged home on pain medications and advised to follow-up with her primary care physician in 5 to 7 days for reevaluation. Patient was advised return to the ED immediately if symptoms get worse. - Differential Diagnosis Osteoarthritis; knee sprain; chronic pain; muscle strain; tendinitis Critical care attestation.: If time is entered above; I have spent that time in minutes in the direct care of this critically ill patient, excluding procedure time. ED Disposition Clinical Impression: Chronic osteoarthritis, Chronic pain syndrome Sprain of left knee/leg Qualifiers: Encounter type: initial encounter Qualified Code(s): S83.92XA - Sprain of unspecified site of left knee, initial encounter Disposition: HOME / SELF CARE / HOMELESS Is pt being admited?: No Does the pt Need Aspirin: No Condition: Stable Instructions: Knee Sprain, Adult, Rhwg-cn-Bjra, Arthritis, Jyge-qp-Pmvj, How to Use a Knee Brace, Preventing Osteoarthritis, Adult Additional Instructions: The knee x-ray showed no acute fracture or subluxation. There is mild joint space loss and osteophytosis involving the medial greater than patellofemoral greater than lateral compartments. There is a small joint effusion. Therefore take pain medications with food, drink plenty of fluids and follow-up with your primary care physician in 5 to 7 days for reevaluation. Return to the ED immediately if symptoms get worse. Prescriptions: Baclofen 20 mg PO Q12H PRN #30 tablet PRN Reason: Muscle Spasm predniSONE [Deltasone] 40 mg PO QDAY #10 tab Naproxen Sodium [Naproxen Sodium 550mg] 550 mg PO Q12H PRN #30 tablet PRN Reason: Pain , Severe (7-10) traMADoL [Ultram] 50 mg PO Q6HR PRN #12 tablet PRN Reason: Pain Referrals: [facility] [Provider Group] - 3-5 Days Time of Disposition: 22:12 Print Language: [place]
== END 2021-02-01 23:00 | disposition home or self-care (01) ==
LOC: ED 18:45
DX: S83.92XA Sprain of unspecified site of left knee, initial encounter (principal); M17.12 Unilateral primary osteoarthritis, left knee; G89.4 Chronic pain syndrome; I10 Essential (primary) hypertension; E11.9 Type 2 diabetes mellitus without complications; F17.200 Nicotine dependence, unspecified, uncomplicated; Z98.890 Other specified postprocedural states; Z86.73 Personal history of transient ischemic attack (TIA), and cerebral infarction without residual deficits; X58.XXXA Exposure to other specified factors, initial encounter; Y93.89 Activity, other specified; Y92.89 Other specified places as the place of occurrence of the external cause; Y99.8 Other external cause status; Z88.8 Allergy status to other drugs, medicaments and biological substances
CPT/HCPCS: 36415; 73562; 80053; 85025; 99283; J7512; Q0162